=== PATIENT | female | born 1980 | race Caucasian/White ===

== ENCOUNTER 2019-08-18 21:52 | Inpatient (IN) ==
[2019-08-18 22:16] LABS: URINE SOURCE CLEAN CATCH
[2019-08-18 22:18] LABS: BILIRUBIN URINE NEGATIVE (NEGATIVE); BLOOD URINE NEGATIVE (NEGATIVE); COLOR STRAW; GLUCOSE URINE NEGATIVE (NEGATIVE); KETONE URINE NEGATIVE (NEGATIVE); LEUKOCYTES URINE NEGATIVE (NEGATIVE); NITRITE URINE NEGATIVE (NEGATIVE); PROTEIN URINE NEGATIVE (NEGATIVE); SP GRAVITY URINE 1.008; TURBIDITY URINE CLEAR (CLEAR); UROBILINOGEN URINE NORMAL (NORMAL)
[2019-08-18 22:19] LABS: UR EPITHELIAL CELLS <10 /HPF (<10); URINE BACTERIA NEGATIVE /HPF; URINE RBC <10 /HPF (<10); URINE WBC <10 /HPF (<10)
[2019-08-18 22:22] LABS: BASO# 0.04 X1000 (0.0-0.2); BASO% 0.4 % (0.0-0.8); EOS# 0.32 X1000 (0.0-0.7); HEMATOCRIT 46.7 % (37.0-47.0); HEMOGLOBIN 16.2 g/dL (12.0-16.0); IMM GRAN# 0.03 X1000 (0.0-0.04); IMM GRAN% 0.3 % (0.0-0.5); LYMPH# 3.59 X1000 (1.2-3.4); LYMPH% 33.4 % (20.5-51.1); MCH 30.5 PG (27-31); MCHC 34.7 g/dL (33-37); MCV 87.9 FL (81-99); MONO# 0.65 X1000 (0.11-0.59); MPV 8.9 FL (7.4-10.4); NEUT# 6.12 X1000 (1.4-6.5); NEUT% 56.9 % (42.2-75.2); PLT 268 X1000 (130-400); RBC 5.31 XMIL (4.2-5.4); RDW 12.6 % (11.5-14.5); WBC 10.75 X1000 (4.8-10.8)
[2019-08-18] MEDS ORDERED: ZOFRAN IV ONE (22:23)
[2019-08-18] MEDS ORDERED: TORADOL IV ONE (22:23)
--- NOTE | 2019-08-18 22:45 | PROVIDER DOCUMENTATION ---
HPI-Abdominal Pain/GI Problem - General Chief Complaint: Abdominal Pain Stated Complaint: ABD PAIN Time Seen by Provider: 08/18/19 22:13 Source: patient Allergies/Adverse Reactions: Patient Allergies Allergy/AdvReac Type Severity Reaction Status Date / Time venom-honey bee Allergy Intermediate RASH Verified 06/19/18 04:08 [bee venom (honey bee)] latex Allergy Mild RASH Verified 06/19/18 04:08 Home Medications: Home Medication List Medication Instructions Recorded Confirmed Last Taken Type Aripiprazole 15 mg PO DAILY 06/19/18 06/19/18 Unknown History Duloxetine HCl 60 mg PO DAILY 06/19/18 06/19/18 Unknown History Ketorolac [Toradol] 10 mg PO Q6H PRN PRN #14 tab 05/09/19 Unknown Rx Methocarbamol [Robaxin] 500 mg PO BID #14 tab 05/09/19 Unknown Rx - History of Present Illness-ABD Nature of Presenting Problems: Patient is a 39yo F who presents with complaints of umbilical abdominal pain that began this morning at 0800. Reports over the past hour, the pain has worsened and became severe. States she has accompanying nausea, however denies vomiting. Reports last BM was last night and was diarrhea. Reports no relief with OTC Pepcid, Gas X, or Mary Beth seltzer. Denies fever/chills, blood in stool, symptoms, CP, or SOB. Non-toxic in appearance. Abdominal Pain Onset Location: reports: periumbilical Pain Radiation: reports: no radiation Quality of Pain: reports: cramping, pressure Severity in ED: reports: moderate Onset/Duration: reports: this morning (0800) Timing: reports: getting worse Activities at Onset: reports: none Modifying Factors: improves with: nothing Associated Symptoms: reports: diarrhea, nausea. denies: back/neck pain, cough, fever/chills, genitourinary problems, shortness of breath, vomiting, weakness Last BM: this evening Dark Stools Present?: reports: none noticed Rectal Bleeding: reports: none # of Diarrhea Episodes: 1 Rectal Pain: reports: none # of Vomiting Episodes: 0 (nausea) Emesis Description: reports: none Bruising or Bleeding Gums?: No Similar Symptoms Previously?: No Recently seen or treated by another doctor?: No Review of Systems - Adult - REVIEW OF SYSTEMS - ADULT Constitutional: reports: no symptoms reported. denies: chills, fever Eyes: reports: no symptoms reported Ears, Nose, Mouth & Throat: reports: no symptoms reported Cardiovascular: reports: no symptoms reported. denies: chest pain, palpitations Respiratory: reports: no symptoms reported. denies: cough, shortness of breath Gastrointestinal: reports: see HPI, abdominal pain (periumbilical), diarrhea (x1), nausea. denies: vomiting Genitourinary: reports: no symptoms reported. denies: dysuria Musculoskeletal: reports: no symptoms reported Integumentary: reports: no symptoms reported Neurological: reports: no symptoms reported Psychiatric: reports: no symptoms reported Endocrine: reports: no symptoms reported Past History - Adult - PAST MEDICAL HISTORY-ADULT Review of Records: reports: Nursing Assessment Review, Medications Reviewed Major Childhood Illnesses: reports: denies history Cardiovascular: reports: denies history Respiratory: reports: denies history Gastrointestinal: reports: denies history Obstetrical/Gynecological: denies: - spont/elective, ectopic , endometriosis Other Conditions: reports: denies history - IMMUNIZATION STATUS Childhood Immunizations: See Nurse Assessment Flu Vaccine: See Nurse Assessment - FAMILY HISTORY Family History: reviewed, not pertinent - SOCIAL HISTORY Smoking: cigarettes Provider spent 3-5 mins advising pt. on dangers of tobacco.: Discussed manners to quit use, and f/u contacts for add'l counseling. Physical Exam-General - PHYSICAL EXAM-ADULT Initial Vital Signs Reviewed: Yes - CONSTITUTIONAL General Appearance: alert, mild distress. negative: lethargic, slow to respond, obtunded - EYES Eyes: PERRL/EOMI, pink conjunctivae. negative: EOM palsy, scleral icterus - HEAD, EARS, NOSE, MOUTH & THROAT HENMT: normocephalic/atraumatic, moist mucous membranes. negative: angioedema - NECK Neck: non-tender, full range of motion, supple, normal inspection - RESPIRATORY Respiratory: chest non-tender, lungs clear, normal breath sounds, no pleuratic chest pain, no respiratory distress, no accessory muscle use. negative: crackles, rales, rhonchi, stridor, wheezing, retractions, splinting - CARDIOVASCULAR Cardiovascular: regular rate, rhythm, no gallop - GASTROINTESTINAL (ABDOMEN) Abdominal Exam: normal bowel sounds, soft, tenderness (diffusely TTP). negative: guarding, rigid, rebound - MUSCULOSKELETAL Back Exam: normal inspection Extremity: normal range of motion, non-tender, normal gait, normal inspection - SKIN Integumentary: normal color, warm/dry. negative: cyanosis, jaundice, pallor - NEUROLOGIC Neurologic: grossly normal. negative: abnormal gait, aphasia, EOM palsy - PSYCHIATRIC Psych/Mental Status: normal mood/affect, normal thought content, normal thought process, oriented x 3 Progress - PLAN OF CARE/RESULTS Progress/Plan/Lab Results: Vital Signs - 8 hr 08/18/19 21:55 Temperature 97.8 F Pulse Rate 83 Respiratory Rate 16 Blood Pressure 159/100 O2 Sat by Pulse Oximetry 96 Laboratory Results - last 24 hr 08/18/19 08/18/19 22:06 22:11 WBC 10.75 RBC 5.31 Hgb 16.2 H Hct 46.7 MCV 87.9 MCH 30.5 MCHC 34.7 RDW Std Deviation 12.6 Plt Count 268 MPV 8.9 Immature Gran % (Auto) 0.3 Neut % (Auto) 56.9 Lymph % (Auto) 33.4 [place] % (Auto) 6.0 Eos % (Auto) 3.0 Baso % (Auto) 0.4 Immature Gran # (Auto) 0.03 Neut # (Auto) 6.12 Lymph # (Auto) 3.59 H [place] # (Auto) 0.65 H Eos # (Auto) 0.32 Baso # (Auto) 0.04 Urine Source CLEAN CATCH Urine Color STRAW Urine Turbidity CLEAR Urine pH 7.0 Ur Specific Mitchell 1.008 Urine Protein NEGATIVE Ur Glucose (Stick) NEGATIVE Ur Ketones (Stick) NEGATIVE Urine Blood NEGATIVE Urine Nitrite NEGATIVE Urine Bilirubin NEGATIVE Urobilinogen Dipstick NORMAL Urine Leukocytes NEGATIVE Urine WBC (Auto) <10 Urine RBC (Auto) <10 U Epithel Cells (Auto) <10 Urine Bacteria (Auto) NEGATIVE Orders Category Date Time Status Saline Loc NOW Care 08/18/19 21:59 Active NPO Diet 08/18/19 21:59 Active CBC WITH DIFF [HEME] Stat Lab 08/18/19 22:11 Completed COMPREHENSIVE METABOLIC PANEL [CHEM] Stat Lab 08/18/19 22:11 Received LIPASE [CHEM] Stat Lab 08/18/19 22:11 Received URINALYSIS [URINALYSIS] Stat Lab 08/18/19 22:06 Completed Ketorolac [Toradol] Med 08/18/19 22:23 Discontinued 30 mg IV NOW ONE Ondansetron [Zofran] Med 08/18/19 22:23 Discontinued 4 mg IV NOW ONE Abd Pain/OB <20 weeks Stat Oth 08/18/19 21:59 Ordered Lab results, imaging results, and need for admission discussed with patient who agrees with and verbalizes understanding. Dr. Brice consulted regarding admission/monitoring. Patient to be admitted for monitoring of ileus. Plan of care discussed with Dr. Demarco who reports an NGT is not necessary at this time. Result Diagrams: 08/18/19 22:11 08/18/19 22:11 - CT/MRI 1 CT Study: Abdomen, Pelvis Impression: See EMR Report ("1. New mild focal adynamic ileus mid pelvis. Other considerations would include early mechanical small bowel obstruction.") - CONSULTS/PCP/HOSPITALIST Notification #1 *Consult/PCP/Hospitalist*: Dr. Brice, Hospitalist Time Discussed: 00:53 Reason/Comments: Adynamic ileus/early small bowel obstruction Consult Disposition: Admit Departure - Departure Date of Disposition Decision: 08/19/19 Time of Disposition Decision: 00:53 DIAGNOSIS: Adynamic ileus, Nausea alone Abdominal pain Qualifiers: Abdominal location: periumbilical Qualified Code(s): R10.33 - Periumbilical pain Disposition: ADMITTED INPATIENT 09 Certified Medical Emergency: Emergent Condition: Stable Referrals and Follow-Ups: Don Bryant [Primary Care Provider] - - Critical Care Note This patient required my direct & personal management of CC.: No Attestation - Physician/ JO-ANN Attestation Patient care was provided by Advanced Practice Provider:: Yes Advanced Practice Provider:: Dedra Kirk Advanced Practice Provider documentation review:: The Mid-level provider documentation, treatment plan and medical decision making was reviewed by the physician who agrees with all treatment and medical decision making by the MLP. The physician spent face to face time with patient:: No Advanced Practice Provider documentation review:: Supervising physician onsite and consulted in the evaluation and care of this patient. The physician did not have a face to face encounter with the patient.
[2019-08-18 22:47] LABS: AGAP 12; ALBUMIN 5.1 g/dL (3.5-5.0); ALKALINE PHOSPHATASE 66 U/L (32-104); BUN 16 mg/dL (8-22); CHLORIDE 98 mmol/L (98-107); COSMO 278; CREATININE 0.7 mg/dL (0.5-0.9); ESTIMATED GFR > 60; GLUCOSE 81 mg/dL (70-104); GOT 17 U/L (10-30); GPT 13 U/L (10-36); LIPASE 26 U/L (13-60); POTASSIUM 4.2 mmol/L (3.5-5.1); SODIUM 139 mmol/L (136-145); TCO2 29 mmol/L (25-35); TOTAL PROTEIN 7.7 g/dL (6.3-8.3)
[2019-08-19] MEDS ORDERED: NS 1,000 ML IV ONE (00:54)
[2019-08-19] MEDS ORDERED: BENADRYL IV ONE (01:21)
[2019-08-19] MEDS ORDERED: NICODERM PATCH TD ONE (01:21)
[2019-08-19] MEDS ORDERED: TORADOL IV PRN (03:27)
[2019-08-19] MEDS ORDERED: ZOFRAN IV PRN (03:27)
--- NOTE | 2019-08-19 08:26 | Diag Imaging Result Doc PS360 ---
EXAM: CT ABD/PELVIS W/IV CONT ONLY HISTORY: umibilical abdominal pain; nausea TECHNIQUE: CT abdomen and pelvis with intravenous contrast COMPARISON: 06/18/2017 FINDINGS: the gallbladder is contracted. No calcified stones. Normal liver, spleen, pancreas, adrenal glands, and kidneys. No hydronephrosis. Normal aorta. Fluid-filled loops of small bowel with air and stool in the colon. The bowel loops are not dilated. Trace fluid in the pelvis. The urinary bladder is moderately distended and appears normal. The uterus has been removed. No abscess. IMPRESSION: No acute abnormality identified. A preliminary report was given at 12:30 AM This exam was performed using automated exposure control, adjustment of mA or kV according to patient size, and/or use of iterative reconstruction technique. Electronically signed by Omid Virgen 08/19/2019 8:24 AM
[2019-08-19] MEDS ORDERED: TYLENOL PO PRN (09:15)
[2019-08-19] MEDS ORDERED: SODIUM CHLORIDE 0.9% INJ SCH (09:30)
[2019-08-19] MEDS ORDERED: CYMBALTA PO ONE (10:40)
[2019-08-19] MEDS ORDERED: TYLENOL PO ONE (10:42)
--- NOTE | 2019-08-19 12:19 | HISTORY AND PHYSICAL ---
PRIMARY CARE PROVIDER: Dr. Bryant. CHIEF COMPLAINT: Stomach pain. HISTORY OF PRESENT ILLNESS: Ms. Cristy Ayon is a 39-year-old, female with a medical history of bipolar type 1 with audiovisual hallucinations that is pretty much continuous for her. Also history of hypertension, narrow angle glaucoma, headaches, and states that yesterday morning around 8 a.m., she started having periumbilical pain. The pain became progressively worse, that included nausea. States that she had a bowel movement 2 days ago. It was diarrhea at that time but none since then. She still continues with the pain but states that it has improved. Not yet passing gas. She had imaging that showed an ileus, adynamic ileus versus early small bowel obstruction. Bowel sounds are a little hyperactive. The nausea has since resolved so we will start to advance her diet and increase her activity. PAST MEDICAL HISTORY: 1. History of bipolar type 1, continuous audiovisual hallucinations. 2. History of intentional overdose with Neurontin, Flexeril, Benadryl, and plans to slit her wrists. This was back in 2017. 3. Sciatica. 4. Mild scoliosis. 5. Arthritis of the left knee and the elbow. 6. Hypertension. 7. Narrow angle glaucoma. 8. Endometriosis. 9. Cyst on the liver that she states was never removed. 10. Headaches. 11. Four bulging disks in her back. SURGICAL HISTORY: 1. Partial hysterectomy. 2. Ovarian cyst removed. 3. section x3. 4. Partial thyroidectomy. 5. Renal calculi removed. SOCIAL HISTORY: Half pack per day smoker since age of 14. Denies alcohol. Smokes marijuana about 3 times a week. FAMILY HISTORY: Father has somatization disorder. Sister, bipolar. Mother bipolar, hypertension, and lung cancer. Uncle, diabetes. ALLERGIES: Honeybee venom and latex. HOME MEDICATIONS: 1. Neurontin 600 mg p.o. t.i.d. 2. Cymbalta 60 mg p.o. daily. 3. Losartan 25 mg p.o. daily. REVIEW OF SYSTEMS: Fourteen point review of systems are complete and all were negative except for those mentioned above in the HPI. She still has a little bit of tenderness in the abdomen. PHYSICAL EXAMINATION: VITAL SIGNS: Temperature 98.1 degrees, heart rate 69, respiratory rate 18, blood pressure 107/65, O2 saturation 98% on room air. She is 5 feet 1 inch tall, 105 pounds, BMI is 19.8. GENERAL: Ms. Cristy Ayon is a 39-year-old, female. She is in no acute distress. She is able answer questions appropriately. HEENT: Atraumatic, normocephalic. Pupils equal, round, reactive to light. Extraocular movements intact. Mucous membranes are dry. NECK: Trachea midline. CARDIOVASCULAR: S1, S2. Regular rate and rhythm. No rubs, gallops, murmurs. No lower extremity edema. There are +2 dorsalis and radial pulses. Negative JVD or carotid bruits. PULMONARY: Clear to auscultate bilateral breath sounds. No accessory muscle use or work of breathing noted. GASTROINTESTINAL: Soft. Tender in the periumbilical region with palpation. Hyperactive bowel sounds that are echoic, a bit of an echo or high-pitched. EXTREMITIES: Moves all extremities equally. Full range of motion. NEUROLOGIC: A and O x3. Follows commands. Sensory is intact. SKIN: Warm, dry, intact. LABORATORY DATA: White blood cells 10,000, hemoglobin 16, hematocrit 46, platelet count 268,000. Sodium 139, potassium 4.2, BUN 16, creatinine 0.7, glucose 81, calcium 10. Bilirubin 0.30, AST 17, ALT 13, albumin 5.1, lipase 26. Urinalysis negative. IMAGING: Abdominal and pelvic CT, this CT does not report any acute findings. There was a preliminary report of adynamic ileus versus early small bowel obstruction which is why she was admitted. ASSESSMENT AND PLAN: 1. Likely adynamic ileus with some constipation. No bowel movement in 2 days but we are going to start to increase oral fluid intake for now and antiemetics for nausea. 2. Bipolar type 1 disorder with continuous audiovisual hallucinations. She said that they do not ever go away. We will continue Cymbalta and Neurontin. That is what she takes for it. 3. Hypertension. Continue losartan. 4. Deep venous thrombosis prophylaxis. Lovenox. 5. Tobacco abuse. Cessation discussed. Dictated by SARAH Wagner for Bebeto Brice MD cc: SARAH Wagner MD
[2019-08-19] MEDS: PROTONIX IV SCH (12:31)
[2019-08-19] MEDS: NS 1,000 ML IV SCH ×3 (12:31→22:12)
[2019-08-19] MEDS: LOVENOX SUBQ SCH (12:31)
[2019-08-19] MEDS: NEURONTIN PO SCH ×2 (14:49→22:11)
--- NOTE | 2019-08-19 16:53 | HISTORY AND PHYSICAL ---
ADDENDUM: Patient seen and examined by myself. Full note dictated and discussed with nurse practitioner. Patient presented to the hospital with abdominal pain. It appears that she has a small bowel ileus. She has decreased bowel sounds. We going to admit her to the hospital. Keep her n.p.o. Advance diet as tolerated. We will follow her blood pressures which are elevated at 159/100. Further orders as needed. cc: Bebeto Brice MD
[2019-08-19] MEDS: TORADOL IV PRN (17:15)
[2019-08-20 05:39] VITALS: BP 114/72
[2019-08-20] MEDS: NS 1,000 ML IV SCH (05:51)
[2019-08-20 07:07] LABS: AGAP 9; ALBUMIN 3.7 g/dL (3.5-5.0); ALKALINE PHOSPHATASE 48 U/L (32-104); BUN 10 mg/dL (8-22); CALCIUM 8.3 mg/dL (8.8-10.2); CHLORIDE 110 mmol/L (98-107); COSMO 281; CREATININE 0.5 mg/dL (0.5-0.9); ESTIMATED GFR > 60; GLUCOSE 84 mg/dL (70-104); GOT 12 U/L (10-30); GPT 10 U/L (10-36); POTASSIUM 4.3 mmol/L (3.5-5.1); SODIUM 142 mmol/L (136-145); TCO2 24 mmol/L (25-35); TOTAL PROTEIN 5.6 g/dL (6.3-8.3)
--- NOTE | 2019-08-20 07:09 | Diag Imaging Result Doc PS360 ---
EXAM: ABDOMEN FLAT/UPRIGHT HISTORY: ileus TECHNIQUE: Two views COMPARISON: 07/02/2012 FINDINGS: No free air beneath the diaphragm. There is stool throughout the colon. There are surgical clips overlying the lower abdomen and pelvis. Slight curvature to the spine. No abnormal abdominal calcifications. IMPRESSION: Moderate constipation Electronically signed by Omid Virgen 08/20/2019 7:07 AM
[2019-08-20] MEDS ORDERED: NICODERM PATCH TD SCH (09:00)
[2019-08-20] MEDS ORDERED: CYMBALTA PO SCH (09:00)
[2019-08-20] MEDS ORDERED: COZAAR PO SCH (09:00)
[2019-08-20 09:21] LABS: BASO# 0.03 X1000 (0.0-0.2); BASO% 0.6 % (0.0-0.8); EOS# 0.19 X1000 (0.0-0.7); EOS% 3.6 % (0.0-10.0); HEMATOCRIT 40.4 % (37.0-47.0); HEMOGLOBIN 13.2 g/dL (12.0-16.0); IMM GRAN# 0.01 X1000 (0.0-0.04); IMM GRAN% 0.2 % (0.0-0.5); LYMPH# 2.37 X1000 (1.2-3.4); LYMPH% 44.3 % (20.5-51.1); MCH 29.9 PG (27-31); MCHC 32.7 g/dL (33-37); MCV 91.4 FL (81-99); MONO% 7.5 % (1.7-9.3); MPV 9.6 FL (7.4-10.4); NEUT# 2.35 X1000 (1.4-6.5); NEUT% 43.8 % (42.2-75.2); PLT 212 X1000 (130-400); RBC 4.42 XMIL (4.2-5.4); RDW 12.6 % (11.5-14.5); WBC 5.35 X1000 (4.8-10.8)
[2019-08-20] MEDS: NEURONTIN PO SCH (09:40)
[2019-08-20] MEDS: LOVENOX SUBQ SCH (09:40)
[2019-08-20] MEDS: PROTONIX IV SCH (09:40)
[2019-08-20] MEDS: TORADOL IV PRN (09:41)
--- NOTE | 2019-08-20 15:05 | DISCHARGE SUMMARY ---
ADMISSION DATE: 08/19/2019 DISCHARGE DATE: 08/20/2019 PRIMARY CARE PROVIDER: Don Bryant. PERTINENT PROCEDURES: Abdomen and pelvis CT: No acute abnormality identified. Abdominal x-ray: Moderate constipation. DISCHARGE DIAGNOSES: 1. Likely adynamic ileus with some constipation. Resolved. 2. Bipolar type 1 disorder with continuous audiovisual hallucinations. Stable. Continue home medications. 3. Hypertension. Continue losartan. 4. Tobacco abuse. Cessation was discussed and educated. HOSPITAL COURSE: Briefly, Ms. Ayon is a 39-year-old, female, with a past medical history of bipolar type 1 with audiovisual hallucinations that is continuous for her, hypertension, narrow-angle glaucoma, headaches, who came to the ED complaining of periumbilical pain that became progressively worse with nausea. Complaining of no bowel movement in 2 days. The reported imaging that showed an ileus, adynamic versus early small bowel obstruction. Her oral intake was increased as well as her activity. Her followup abdominal x-ray showed no signs of an ileus or obstruction, just moderate constipation. She tolerated a regular diet, was passing gas, and discharged home. VITAL SIGNS: Temperature is 98 degrees, heart rate 66, respirations 18, blood pressure 114/72, O2 is 100% on room air. DISCHARGE DIET: Regular. DISCHARGE MEDICATIONS: 1. Losartan potassium 25 mg p.o. daily. 2. Cymbalta 60 mg p.o. daily. FOLLOWUP: Ms. Ayon is being discharged back home with self care. She is to follow up with her primary care provider, Dr. Don Bryant, within 1 to 2 weeks or sooner if needed. She can return to the ED or call 911 for any worsening of symptoms. Dictated by SARAH Recinos for Bebeto Brice MD cc: Bebeto Brice MD
--- NOTE | 2019-08-20 17:49 | DISCHARGE SUMMARY ---
ADMISSION DATE: 08/19/2019 DISCHARGE DATE: 08/20/2019 DISCHARGE DIAGNOSES: 1. Small-bowel ileus with constipation, resolved. 2. Bipolar type 1 with continuous audiovisual hallucinations. 3. Hypertension. 4. Chronic tobacco abuse. 5. Chronic sciatica. 6. Narrow angle glaucoma. CONSULTATIONS: None. PROCEDURES: None. BRIEF HOSPITAL COURSE: The patient is a 39-year-old female who presented to the hospital with an ileus. Thankfully, this resolved. She was placed on IV fluids and kept n.p.o. until her symptoms improved, and then her diet was advanced. On discharge, she is awake and alert. She is in no distress. States that she feels completely back to normal and has tolerated a regular soft diet. DISPOSITION: Patient will be discharged home. She will continue her home medications without any changes. She will follow up outpatient with her primary care. TIME SPENT: Greater than 30 minutes was spent in total care. cc: Bebeto Brice MD
== END 2019-08-20 11:24 | disposition home or self-care (01) | DRG 390 ==
LOC: P.ED 21:52 → P.MEDSURG 08-19 03:03
PROVIDERS: ATTEND Family Medicine

== ENCOUNTER 2019-12-17 15:52 | Inpatient (IN) ==
[2019-12-17] MEDS ORDERED: ZOFRAN IV ONE (16:22)
[2019-12-17] MEDS ORDERED: CLINDAMYCIN 600 MG/D5W 600 MG/50 ML IVPB IV ONE (16:22)
[2019-12-17] MEDS ORDERED: MORPHINE IV ONE (16:22)
[2019-12-17] MEDS ORDERED: NS 1,000 ML IV ONE ×2 (16:22→22:25)
--- NOTE | 2019-12-17 16:28 | PROVIDER DOCUMENTATION ---
HPI-EENT General - General Chief Complaint: Facial Pain Stated Complaint: ABCESS Time Seen by Provider: 12/17/19 16:03 Source: patient Allergies/Adverse Reactions: Patient Allergies Allergy/AdvReac Type Severity Reaction Status Date / Time venom-honey bee Allergy Intermediate RASH Verified 12/17/19 17:32 [bee venom (honey bee)] latex Allergy Mild RASH Verified 12/17/19 17:32 Home Medications: Home Medication List Medication Instructions Recorded Confirmed Last Taken Type Duloxetine HCl 60 mg PO DAILY 06/19/18 12/17/19 Unknown History Losartan Potassium 25 mg PO DAILY 08/19/19 12/17/19 Unknown History gabapentin 600 mg tablet 600 mg PO TID 08/26/19 12/17/19 Unknown History - History of Present Illness-EENT General Nature of Presenting Problem: Patient is a 39 yof who c/o pain and swelling to chin and lower palate intermittently x 2 weeks, states swelling and pain worse today. Reports fever with temp max of 103. Denies any other complaints. Pt non-toxic. Review of Systems - Adult - REVIEW OF SYSTEMS - ADULT Constitutional: reports: see HPI, fever Eyes: reports: no symptoms reported Ears, Nose, Mouth & Throat: reports: see HPI Cardiovascular: reports: no symptoms reported Respiratory: reports: no symptoms reported Gastrointestinal: reports: no symptoms reported Genitourinary: reports: no symptoms reported Musculoskeletal: reports: no symptoms reported Integumentary: reports: no symptoms reported Neurological: reports: no symptoms reported Psychiatric: reports: no symptoms reported Endocrine: reports: no symptoms reported Hematologic/Lymphatic: reports: no symptoms reported Allergic/Immunologic: reports: no symptoms reported All Other Systems: Reviewed and Negative Past History - Adult - PAST MEDICAL HISTORY-ADULT Review of Records: reports: Nursing Assessment Review, Medications Reviewed, Social history reviewed & non-contributory. Major Childhood Illnesses: reports: denies history Cardiovascular: reports: HTN Respiratory: reports: denies history Gastrointestinal: reports: denies history Genitourinary: reports: denies history Musculoskeletal: reports: chronic pain (back) Neurological: reports: denies history Psychiatric: reports: bipolar Endocrine/Immune: reports: denies history Other Conditions: reports: denies history - PRIOR SURGERIES/PROCEDURES Surgical/Procedure History: reports: other (salivary duct remova, partial thyroidectomy) - IMMUNIZATION STATUS Childhood Immunizations: See Nurse Assessment Flu Vaccine: See Nurse Assessment - FAMILY HISTORY Family History: reviewed, not pertinent - SOCIAL HISTORY Smoking: cigarettes, less than 1 pack/day Physical Exam- EENT - Physical Exam EENT Initial Vital Signs Reviewed: Yes General Appearance: alert, no apparent distress. negative: lethargic, slow to respond Eye Exam: bilateral eye: normal inspection, PERRL Ear Exam: bilateral ear: auricle normal, canal normal, TM normal Nasal Exam: normal inspection Throat Exam: pharynx normal, mandibular swelling (right and midline, moderate, tender with palpation, lower palpate and sublingual region also tender with palpation.), other (erythema and swelling noted to lower palate/sublingual region). negative: uvula swelling Neck: full range of motion, supple, lymphadenopathy (bilateral anterior cervical) Respiratory: chest non-tender, lungs clear, normal breath sounds, no pleuratic chest pain, no respiratory distress, no accessory muscle use Cardiovascular: regular rate, rhythm, no gallop, no murmur Extremity: normal range of motion, normal gait, normal inspection Integumentary: normal color, warm/dry. negative: cyanosis, diaphoresis, jaundice, mottled, pallor Neurologic: grossly normal, no motor/sensory deficits Psych/Mental Status: normal mood/affect, normal thought content, normal thought process, oriented x 3 Progress - PLAN OF CARE/RESULTS Progress/Plan/Lab Results: Vital Signs - 8 hr 12/17/19 16:08 12/17/19 18:53 Temperature 99.3 F Pulse Rate 90 78 Respiratory Rate 16 19 Blood Pressure 149/71 149/99 O2 Sat by Pulse Oximetry 97 98 Laboratory Results - last 24 hr 12/17/19 12/17/19 16:55 16:55 WBC 13.91 H RBC 5.46 H Hgb 16.8 H Hct 48.5 H MCV 88.8 MCH 30.8 MCHC 34.6 RDW Std Deviation 12.7 Plt Count 240 MPV 9.4 Immature Gran % (Auto) 0.2 Neut % (Auto) 78.6 H Lymph % (Auto) 13.7 L Stafford % (Auto) 6.0 Eos % (Auto) 1.3 Baso % (Auto) 0.2 Immature Gran # (Auto) 0.03 Neut # (Auto) 10.93 H Lymph # (Auto) 1.90 Stafford # (Auto) 0.84 H Eos # (Auto) 0.18 Baso # (Auto) 0.03 Sodium 139 Potassium 3.7 Chloride 99 Carbon Dioxide 23 L Anion Gap 17 BUN 12 Creatinine 0.8 Estimated GFR/1.73 m2 > 60 BUN/Creatinine Ratio 15 Glucose 85 Calculated Osmolality 277 Calcium 9.2 Total Bilirubin 0.60 AST 13 ALT 9 L Alkaline Phosphatase 55 Total Protein 7.8 Albumin 4.9 Globulin 3.0 Albumin/Globulin Ratio 2.0 Amylase 50 Orders Category Date Time Status CT NECK W/CONTRAST [CT] Stat Exams 12/17/19 16:22 Completed AMYLASE [CHEM] Stat Lab 12/17/19 16:55 Completed BLOOD CULTURE [BLDCUL] Stat Lab 12/17/19 17:16 Results CBC WITH DIFF [HEME] Stat Lab 12/17/19 16:55 Completed COMPREHENSIVE METABOLIC PANEL [CHEM] Stat Lab 12/17/19 16:55 Completed 0.9% Sodium Chloride Inj [Ns] 1,000 ml Med 12/17/19 16:22 Discontinued IV 999 mls/hr Clindamycin 600 mg/D5w Med 12/17/19 16:22 Discontinued 600 mg in 50 ml IV NOW Levofloxacin 500 mg/D5w [Levaquin 500 mg/D5w] Med 12/17/19 21:30 Active 500 mg in 100 ml IV Q24H Morphine Med 12/17/19 16:22 Discontinued 4 mg IV NOW ONE Ondansetron [Zofran] Med 12/17/19 16:22 Discontinued 4 mg IV NOW ONE Dr Rowley with [facility] came to see patient. He does not feel this is a ludwigs angina and is likely more a stone with some surrounding cellulitis. Recommended admission with levaquin and clindamycin to [facility]BS and will see patient in his office on Friday. Spoke to Dr Weber, secretary to board of commissioners for hosp who accepted patient for admission. Result Diagrams: 12/17/19 16:55 12/17/19 16:55 - REASSESSMENT Reassessment #1 Time Reassessed: 16:31 Status: other (Dr. Vital evaluated pt- recommends abx, CT neck, and lab work including amylase.) - CT/MRI 1 CT Study: Neck (EXAM: CT NECK W/CONTRAST INDICATION: lower palate swelling ?Luis's angina TECHNIQUE: This exam was performed using automated exposure control, adjustment of mA or kV according to patient size, and/or use of iterative reconstruction technique. COMPARISON: None. FINDINGS: The salivary glands and thyroid are unremarkable. There is extensive enhancement associated with the right sublingual space and, to a lesser degree, on the left (see image 143, series 4). There is surrounding mild soft tissue edema on the right. This corresponds to the patient's lower palate swelling. Although I can see no well- defined fluid collection, this is suspicious for Luis angina. There are small shotty lymph nodes that are slightly more prominent on the right. The thyroid is unremarkable. The paranasal sinuses are clear. The mastoid air cells are clear. IMPRESSION: Prominent enhancement in the sublingual space on the right and, to a lesser degree, on the left suggesting cellulitis and suspicious for Luis angina. Electronically signed by Apollo Be 12/17/2019 7:29 PM) - CONSULTS/PCP/HOSPITALIST Notification #1 *Consult/PCP/Hospitalist*: Dr James Time Discussed: 19:50 Consult Disposition: other ([facility] is better staffed with [facility]) #2 Consult: Dr Rowley Time Discussed: 20:05 Consult Disposition: Will see in ED #3 Consult: Dr Weber Time Discussed: 22:15 Consult Disposition: Admit - CHANGE OF SHIFT REPORT (ED Provider) 1 Report Given and Care Transferred to:: Dr. Vital Time of Transfer: 18:10 Items Pending: CT/MRI Results 2 Report Given and Care Transferred to:: Dr. Alex Time of Transfer: 19:02 Items Pending: CT/MRI Results (CT) Departure - Departure Date of Disposition Decision: 12/17/19 Time of Disposition Decision: 22:24 DIAGNOSIS: Facial cellulitis Disposition: ADMITTED INPATIENT 09 Certified Medical Emergency: Emergent Condition: Stable Referrals and Follow-Ups: None,PCP [Primary Care Provider] - - Critical Care Note This patient required my direct & personal management of CC.: No Attestation - Physician/ JO-ANN Attestation Patient care was provided by Advanced Practice Provider:: Yes Advanced Practice Provider:: Qing Garcia Advanced Practice Provider documentation review:: The Mid-level provider documentation, treatment plan and medical decision making was reviewed by the physician who agrees with all treatment and medical decision making by the [facility]. The physician spent face to face time with patient:: Yes (Dr. Vital) Advanced Practice Provider documentation review:: Supervising physician onsite and consulted in the evaluation and care of this patient. The physician did have a face to face encounter with the patient.
[2019-12-17 17:08] LABS: BASO# 0.03 X1000 (0.0-0.2); BASO% 0.2 % (0.0-0.8); EOS# 0.18 X1000 (0.0-0.7); EOS% 1.3 % (0.0-10.0); HEMATOCRIT 48.5 % (37.0-47.0); HEMOGLOBIN 16.8 g/dL (12.0-16.0); IMM GRAN# 0.03 X1000 (0.0-0.04); IMM GRAN% 0.2 % (0.0-0.5); LYMPH% 13.7 % (20.5-51.1); MCH 30.8 PG (27-31); MCHC 34.6 g/dL (33-37); MCV 88.8 FL (81-99); MONO# 0.84 X1000 (0.11-0.59); MPV 9.4 FL (7.4-10.4); NEUT# 10.93 X1000 (1.4-6.5); NEUT% 78.6 % (42.2-75.2); PLT 240 X1000 (130-400); RBC 5.46 XMIL (4.2-5.4); RDW 12.7 % (11.5-14.5); WBC 13.91 X1000 (4.8-10.8)
[2019-12-17 17:37] LABS: AGAP 17; ALBUMIN 4.9 g/dL (3.5-5.0); ALKALINE PHOSPHATASE 55 U/L (32-104); AMYLASE 50 U/L (20-200); BUN 12 mg/dL (8-22); CALCIUM 9.2 mg/dL (8.8-10.2); CHLORIDE 99 mmol/L (98-107); COSMO 277; CREATININE 0.8 mg/dL (0.5-0.9); ESTIMATED GFR > 60; GLUCOSE 85 mg/dL (70-104); GOT 13 U/L (10-30); GPT 9 U/L (10-36); POTASSIUM 3.7 mmol/L (3.5-5.1); SODIUM 139 mmol/L (136-145); TCO2 23 mmol/L (25-35); TOTAL PROTEIN 7.8 g/dL (6.3-8.3)
--- NOTE | 2019-12-17 19:32 | Diag Imaging Result Doc PS360 ---
EXAM: CT NECK W/CONTRAST INDICATION: lower palate swelling ?Luis's angina TECHNIQUE: This exam was performed using automated exposure control, adjustment of mA or kV according to patient size, and/or use of iterative reconstruction technique. COMPARISON: None. FINDINGS: The salivary glands and thyroid are unremarkable. There is extensive enhancement associated with the right sublingual space and, to a lesser degree, on the left (see image 143, series 4). There is surrounding mild soft tissue edema on the right. This corresponds to the patient's lower palate swelling. Although I can see no well-defined fluid collection, this is suspicious for Luis angina. There are small shotty lymph nodes that are slightly more prominent on the right. The thyroid is unremarkable. The paranasal sinuses are clear. The mastoid air cells are clear. IMPRESSION: Prominent enhancement in the sublingual space on the right and, to a lesser degree, on the left suggesting cellulitis and suspicious for Luis angina. Electronically signed by Apollo Be 12/17/2019 7:29 PM
[2019-12-17] MEDS ORDERED: TYLENOL PO PRN (22:25)
[2019-12-17] MEDS ORDERED: ZOFRAN IV PRN (22:25)
[2019-12-17] MEDS ORDERED: MOTRIN PO PRN (22:28)
[2019-12-17] MEDS: LEVAQUIN 500 MG/D5W 500 MG/100 ML IVPB IV SCH (22:28)
[2019-12-17] MEDS ORDERED: MORPHINE IV PRN (22:46)
[2019-12-18] MEDS: NORCO-5 PO PRN ×3 (00:02→15:04)
[2019-12-18] MEDS: NICODERM PATCH TD SCH ×2 (00:33→08:29)
[2019-12-18] MEDS: CLINDAMYCIN 600 MG/D5W 600 MG/50 ML IVPB IV SCH ×3 (01:57→16:35)
[2019-12-18] MEDS ORDERED: CLINDAMYCIN IV SCH (03:00)
[2019-12-18] MEDS: WELLBUTRIN XL PO SCH (11:20)
[2019-12-18] MEDS: COZAAR PO SCH (11:20)
[2019-12-18] MEDS: NEURONTIN PO SCH ×3 (11:21→21:32)
[2019-12-18] MEDS: LEVAQUIN 500 MG/D5W 500 MG/100 ML IVPB IV SCH (21:32)
[2019-12-19] MEDS: NORCO-5 PO PRN ×3 (00:39→16:50)
[2019-12-19] MEDS: CLINDAMYCIN 600 MG/D5W 600 MG/50 ML IVPB IV SCH ×2 (00:39→08:33)
[2019-12-19] MEDS: NICODERM PATCH TD SCH (08:33)
[2019-12-19] MEDS: NEURONTIN PO SCH ×3 (08:33→21:04)
[2019-12-19] MEDS: COZAAR PO SCH (08:33)
[2019-12-19] MEDS: WELLBUTRIN XL PO SCH (08:33)
[2019-12-19] MEDS ORDERED: MORPHINE IV PRN (09:57)
[2019-12-19] MEDS ORDERED: VANCOMYCIN IV PER PHARMACY MISC SCH (10:00)
[2019-12-19 10:01] LABS: BASO# 0.02 X1000 (0.0-0.2); BASO% 0.4 % (0.0-0.8); EOS# 0.31 X1000 (0.0-0.7); EOS% 5.9 % (0.0-10.0); HEMATOCRIT 42.3 % (37.0-47.0); HEMOGLOBIN 14.1 g/dL (12.0-16.0); IMM GRAN# 0.01 X1000 (0.0-0.04); IMM GRAN% 0.2 % (0.0-0.5); LYMPH# 1.84 X1000 (1.2-3.4); LYMPH% 35.1 % (20.5-51.1); MCH 30.1 PG (27-31); MCHC 33.3 g/dL (33-37); MCV 90.4 FL (81-99); MONO# 0.42 X1000 (0.11-0.59); MPV 9.5 FL (7.4-10.4); NEUT# 2.64 X1000 (1.4-6.5); NEUT% 50.4 % (42.2-75.2); PLT 213 X1000 (130-400); RBC 4.68 XMIL (4.2-5.4); RDW 12.4 % (11.5-14.5); WBC 5.24 X1000 (4.8-10.8)
[2019-12-19 10:14] LABS: AGAP 12; BUN 8 mg/dL (8-22); CALCIUM 8.8 mg/dL (8.8-10.2); CHLORIDE 106 mmol/L (98-107); COSMO 281; CREATININE 0.7 mg/dL (0.5-0.9); ESTIMATED GFR > 60; GLUCOSE 61 mg/dL (70-104); POTASSIUM 3.8 mmol/L (3.5-5.1); SODIUM 143 mmol/L (136-145); TCO2 25 mmol/L (25-35)
--- NOTE | 2019-12-19 10:20 | PROGRESS NOTE ---
DATE: 12/19/2019 SUBJECTIVE: The patient reports still having problems eating. She is doing somewhat better with soft and liquids but when she tries something like regular food, she is having problems with swallowing and having pain with swallowing. OBJECTIVE: Vital Signs: Temperature 97.5 degrees, heart rate 61, respiratory rate 20, blood pressure 116/70, O2 saturation 100% on room air. General Examination: This is a 39-year-old, female lying in bed, in no acute distress. HEENT: Head is normocephalic. On the throat examination, there is some mandibular swelling on the right side and midline as well, with moderate tenderness to palpation. There is very mild reddening in that area as well. Neck: Supple. There is bilateral lymphadenopathy noted in the anterior cervical area. Cardiovascular Examination: S1 and S2 heard. No murmurs, gallops, or rubs. Regular rate and rhythm. Respiratory Examination: Clear bilaterally to auscultation. No work of breathing or using accessory muscles. Abdomen: Soft, nontender to palpation. Bowel sounds present. No organomegaly. Extremities: No clubbing, cyanosis, or edema. Peripheral pulses present in both legs. Neurological Examination: The patient is alert, oriented x3. Moves 4 extremities. Laboratory Data: Pending at the time of my dictation. ASSESSMENT AND PLAN: Facial cellulitis. The patient has been evaluated by Dr. Rowley. He ruled out Luis's angina. He thinks there could be a stone versus surrounding cellulitis. The patient has been started on Levaquin and clindamycin. I think this patient is not improving as we were expecting, so I prefer to go ahead and change the antibiotics to vancomycin and Zosyn, and see how this patient does. The patient is supposed to be seen in Dr. Rowley's office tomorrow. Depending upon how she does, we will see if she can be seen tomorrow or the day after. We will continue with pain medications. We will add Toradol 30 mg intravenous every 6 hours as scheduled and we will monitor this patient closely. cc: Bakari Phillip MD
[2019-12-19] MEDS: TORADOL IV SCH ×4 (10:48→21:03)
[2019-12-19] MEDS: ZOSYN 3.375 GM in NS 50 ML IV SCH ×3 (10:51→21:04)
[2019-12-19] MEDS ORDERED: VANCOMYCIN 1,350 MG in NS 250 ML IV ONE (11:00)
[2019-12-20] MEDS: TORADOL IV SCH ×2 (04:20→10:04)
[2019-12-20] MEDS: ZOSYN 3.375 GM in NS 50 ML IV SCH ×4 (04:24→22:57)
[2019-12-20 06:08] LABS: AGAP 12; BUN 13 mg/dL (8-22); CALCIUM 8.5 mg/dL (8.8-10.2); CHLORIDE 103 mmol/L (98-107); COSMO 278; CREATININE 0.8 mg/dL (0.5-0.9); ESTIMATED GFR > 60; GLUCOSE 80 mg/dL (70-104); POTASSIUM 3.6 mmol/L (3.5-5.1); SODIUM 140 mmol/L (136-145); TCO2 25 mmol/L (25-35)
[2019-12-20 06:19] LABS: BASO# 0.02 X1000 (0.0-0.2); BASO% 0.3 % (0.0-0.8); EOS# 0.31 X1000 (0.0-0.7); EOS% 4.9 % (0.0-10.0); HEMATOCRIT 43.3 % (37.0-47.0); HEMOGLOBIN 14.5 g/dL (12.0-16.0); IMM GRAN# 0.01 X1000 (0.0-0.04); IMM GRAN% 0.2 % (0.0-0.5); LYMPH# 2.85 X1000 (1.2-3.4); LYMPH% 44.9 % (20.5-51.1); MCH 30.2 PG (27-31); MCHC 33.5 g/dL (33-37); MCV 90.2 FL (81-99); MONO# 0.42 X1000 (0.11-0.59); MONO% 6.6 % (1.7-9.3); MPV 9.6 FL (7.4-10.4); NEUT# 2.74 X1000 (1.4-6.5); NEUT% 43.1 % (42.2-75.2); PLT 222 X1000 (130-400); RDW 12.5 % (11.5-14.5); WBC 6.35 X1000 (4.8-10.8)
[2019-12-20] MEDS: COZAAR PO SCH (10:02)
[2019-12-20] MEDS: NEURONTIN PO SCH ×3 (10:02→20:08)
[2019-12-20] MEDS: WELLBUTRIN XL PO SCH (10:02)
--- NOTE | 2019-12-20 10:02 | PROGRESS NOTE ---
DATE: 12/20/2019 SUBJECTIVE: The patient reports that she is feeling better. Still, she is eating better in comparing with yesterday. She still has mild pain when she is swallowing. OBJECTIVE: Vital Signs: Temperature 98 degrees, heart rate 77, respiratory rate 16, blood pressure 123/88, and O2 saturation 100% on room air. General: This is a 39-year-old female lying in bed in no acute distress. HEENT: Head is normocephalic. In the throat examination, there is still swelling on the right side. There is also in the in the submandibular area some tenderness to palpation as well. Neck: Supple. Bilateral lymphadenopathy noted in the anterior cervical area. Cardiovascular: S1, S2 heard. No murmurs, gallops, or rubs. Regular rate and rhythm. Respiratory: Clear bilaterally to auscultation. No work of breathing or using accessory muscles. Abdomen: Soft. Nontender to palpation. Bowel sounds present. No organomegaly. Extremities: No clubbing, cyanosis, or edema. Neurological: Patient alert and oriented x3. Moves all 4 extremities. LABORATORY DATA: White cell count 6.35, hemoglobin 14.4, hematocrit 43.3, and platelets 222,000. Normal BMP. ASSESSMENT AND PLAN: Facial cellulitis. This patient clinically is getting better. The patient has been evaluated by Dr. Rowley and plan was to see this patient in the office. The patient had called his office. Unfortunately, they do not take Medicaid patients so the patient feels very frustrated. At this point, yesterday I switched the antibiotics to vancomycin and Zosyn. She is having good improvement. Considering this what I am planning to do is to continue with antibiotics for at least 24 to 48 hours, and see how she does. We may want to check after 24 to 48 hours if she needs to be seen by maxillary oral surgeon or not. We will continue to monitor this patient closely here. cc: Bakari Phillip MD [facility]
[2019-12-20] MEDS: NICODERM PATCH TD SCH (10:03)
[2019-12-20] MEDS: XANAX PO SCH ×3 (10:13→20:06)
[2019-12-20] MEDS: NORCO-5 PO PRN ×2 (10:13→17:25)
[2019-12-20] MEDS: VANCOMYCIN 1 GM/NS 1 GM/250 ML IVPB IV SCH (10:56)
[2019-12-21] MEDS: XANAX PO SCH ×4 (02:59→19:35)
[2019-12-21] MEDS: ZOSYN 3.375 GM in NS 50 ML IV SCH ×4 (02:59→21:20)
[2019-12-21] MEDS: NORCO-5 PO PRN ×2 (05:42→19:22)
[2019-12-21] MEDS ORDERED: MORPHINE IV PRN (06:17)
[2019-12-21] MEDS: COZAAR PO SCH (09:03)
[2019-12-21] MEDS: NEURONTIN PO SCH ×3 (09:03→20:48)
[2019-12-21] MEDS: WELLBUTRIN XL PO SCH (09:03)
[2019-12-21] MEDS: NICODERM PATCH TD SCH (09:03)
[2019-12-21] MEDS: VANCOMYCIN 1 GM/NS 1 GM/250 ML IVPB IV SCH (11:25)
--- NOTE | 2019-12-21 19:30 | PROGRESS NOTE ---
DATE: 12/21/2019 SUBJECTIVE: The patient notes swelling on her face and neck are tremendously improved. She denies any current fevers or chills. ASSESSMENT: Facial cellulitis. PLAN: We are going to continue IV antibiotics today. If she continues to improve we will switch to oral, and hopefully home tomorrow. cc: Bebeto Brice MD
[2019-12-22] MEDS: XANAX PO SCH ×2 (01:24→08:46)
[2019-12-22] MEDS: ZOSYN 3.375 GM in NS 50 ML IV SCH (03:10)
[2019-12-22] MEDS ORDERED: CLEOCIN PO SCH (07:30)
[2019-12-22 07:40] VITALS: BP 108/66
[2019-12-22] MEDS: WELLBUTRIN XL PO SCH (08:46)
[2019-12-22] MEDS: COZAAR PO SCH (08:46)
[2019-12-22] MEDS: NEURONTIN PO SCH (08:46)
[2019-12-22] MEDS: NICODERM PATCH TD SCH (08:50)
[2019-12-22] MEDS ORDERED: OMNICEF PO SCH (09:00)
--- NOTE | 2019-12-22 22:25 | DISCHARGE SUMMARY ---
ADMISSION DATE: 12/17/2019 DISCHARGE DATE: 12/22/2019 DISCHARGE DIAGNOSIS: Facial cellulitis with abscess, resolved. CONSULTATIONS: None. PROCEDURES: None. BRIEF HOSPITAL COURSE: The patient is a 39-year-old female who presented to the hospital secondary to an abscess type swelling just below her mandible on the right anterior. She was having some pain when swallowing. Thankfully, with antibiotics this appears to have resolved. She is pain-free, eating well. Swelling appears to have completely resolved. She is afebrile and therefore she will be discharged home. DISPOSITION: Patient will be discharged with antibiotics. She will follow up outpatient with ENT or maxillofacial surgery if needed. She will continue antibiotics for a total 10 day course. Prescription was written and sent to her pharmacy. TIME SPENT: Greater than 30 minutes spent in total care. On discharge, patient is in no distress. cc: Bebeto Brice MD
== END 2019-12-22 09:25 | disposition home or self-care (01) | DRG 603 ==
LOC: P.MEDSURG 15:52 → P.ED 15:52 → OBSVTOIN 23:50 → SUATTDRO 23:50
PROVIDERS: ATTEND Family Medicine